=== PATIENT | female | born 1965 | race Caucasian/White ===

== ENCOUNTER 2017-03-31 15:21 | Emergency (ER) | payer OTHER ==
--- NOTE | 2017-03-31 16:55 | RADIOLOGY REPORT ---
EXAMINATION: XR ANKLE, LEFT XR FOOT, LEFT CLINICAL INFORMATION: Confirm fracture COMPARISON: None TECHNIQUE: 3 views of the left ankle. 3 views of the left foot. FINDINGS: Left foot: The foot is wrapped. There is a nondisplaced fracture at the base of the fifth metatarsal. Given the positioning of the fracture line, this is most suggestive of a Walker fracture. Alignment is maintained. Diffuse soft tissue swelling. Left ankle: No additional fracture. No dislocation. The ankle mortise is congruent. No ankle joint effusion. IMPRESSION: Nondisplaced fracture at the base of the fifth metatarsal most consistent with a Walker fracture.
--- NOTE | 2017-03-31 17:30 | ED ANKLE/FOOT INJURY COMPLAINT ---
History of Present Illness General Chief Complaint: Foot or Ankle Injury Stated Complaint: PT HAS BROKEN BONE IN THE LT FOOT,SIB FOR CAST Source: patient Exam Limitations: no limitations Vital Signs & Intake/Output Vital Signs & Intake/Output Vital Signs Date Time Temp Pulse Resp B/P B/P Pulse O2 O2 Flow FiO2 Mean Ox Delivery Rate 03/31 1535 98.0 73 16 160/98 98 Room Air Allergies Coded Allergies: No Known Allergies (03/31/17) Triage Note: PT SLIPPED AND FELL ON VACATION ON 03/24 AND ARRIVES WITH DISK OF XRAY OF FOOT. WAS NOT CASTED IN [facility] DUE TO PLAN FOR FLYING AND ISSUE WITH SWELLING AND RISK FOR COMPARTMENT SYNDROME. ARRIVES WITH PRESSURE WRAP TO LLE. UNABLE TO BEAR WEIGHT. DENIES PAIN AT THIS TIME UNLESS AMBULATING. Triage Nurses Notes Reviewed? yes Occurred: 2 WEEKS AGO Duration: week(s): (2) Timing: no prior history Severity: moderate Severity Numbers: 6 Pain/Injury Location: Left: Foot. Method of Injury: twisted Modifying Factors: Improves With: immobilization. Worsens With: movement. HPI: Patient is a 52-year-old female presenting to the emergency department with chief complaint of left foot pain has been going on for the past 2 weeks. Patient reports that she went to [facility] on vacation, injured her foot, was told she had a fracture in her foot but they were concerned about putting a cast on her foot because she was traveling on an airplane. Just got home today. Here for a cast. Denies any increased pain. She has reported swelling but there has been a dressing on since that happened. Denies any numbness or tingling. No calf pain. Denies any nausea vomiting fevers chills. Has been using over-the- counter Tylenol with some relief. Past History Travel History Traveled to [place] past 21 day No Medical History Any Pertinent Medical History? see below for history Neurological: NONE EENT: NONE Cardiovascular: NONE Respiratory: NONE Gastrointestinal: NONE Hepatic: NONE Renal: NONE Musculoskeletal: NONE Psychiatric: NONE Endocrine: Zuleyka's thyroiditis Surgical History Surgical History: non-contributory Psychosocial History What is your primary language Trinidadian Tobacco Use: Never used ETOH Use: denies use Family History Hx Contributory? No Review of Systems Review of Systems Constitutional: Reports: no symptoms. Comments Review of systems: See HPI, All other systems negative. Constitutional, no chills fever or weight loss HEENT: No visual changes no sore throat no congestion Cardiovascular: No chest pain ,palpitation Skin, no jaundice no rashes Respiratory: No dyspnea cough sputum or hemoptysis GI: No nausea no vomiting : No dysuria No hematuria Muscle skeletal: no back pain, no neck pain, Neurologic: No numbness Immunology: No splenectomy or history of AIDS Physical Exam Physical Exam General Appearance: well developed/nourished, no apparent distress, alert, awake , comfortable Leg/Knee/Thigh Left: normal range of motion, normal inspection Comments: Well-developed well-nourished no apparent distress. HEENT: Atraumatic, extraocular motion intact Neck: Supple, no lymphadenopathy Back: Nontender Respiratory: No respiratory distress Extremities: Moderate edema noted of the dorsum of the left foot, tenderness to palpation over the left fifth metatarsal. No erythema. No pain to palpation over the left medial or lateral malleolus. Able to move all toes without difficulty on the left lower extremity. Pedal pulses are 2+ bilaterally. Capillary refills intact in the lower extremities bilaterally. Neuro: Alert and oriented x3 Psych: Mood affect normal, normal memory normal judgment. Progress Differential Diagnosis: fracture, dislocation, sprain, contusion Plan of Care: Patient will be placed in a splint, orthopedic follow-up. Nonweightbearing status. Diagnostic Imaging: Viewed by Me: Radiology Read. Discussed w/RAD: Radiology Read. Radiology Impression: Neumann FRACTURE Departure Departure Time of Disposition: 1727 Disposition: HOME OR SELF CARE Condition: Stable Clinical Impression Primary Impression: Neumann fracture Qualifiers: Encounter type: initial encounter Fracture type: closed Qualified Code: S99.199A - Other physeal fracture of unspecified metatarsal, initial encounter for closed fracture Referrals: EMANUEL LUQUE,MAGNOLIA Conner (PCP/Family) JUANITO LUQUE,JUANITA Casper Additional Instructions: Do not put any weight on your left foot. Rest and elevate the foot as much as possible. Take [id number] Tylenol and Motrin as directed. Return for worsening symptoms or concerns. You can ice your left foot just make sure he keep the splint dry. Departure Forms: Customer Survey General Discharge Information Procedures Splinting Location: LEFT FOOT Manual Alignment Performed: No Hand-Made Type: orthoglass Splint: posterior walking Splint Applied By: splint applied by me Pre-Proc Neuro Vasc Exam: normal Post-Proc Neuro Vasc Exam: normal Progress: Tolerated procedure well. Bulky dressing placed.
[2017-03-31 17:52] VITALS: BP 163/85
== END 2017-03-31 18:05 ==
LOC: ERH 15:21
DX: S92.352A Displaced fracture of fifth metatarsal bone, left foot, initial encounter for closed fracture (principal); X58.XXXA Exposure to other specified factors, initial encounter; Y93.9 Activity, unspecified; Y92.9 Unspecified place or not applicable
CPT/HCPCS: 73610-LT; 73630-LT